=== PATIENT | male | born 1945 | race Caucasian/White ===

== ENCOUNTER → 2021-01-10 | Outpatient (CLI) | payer MEDICARE ==
[~2021-01-10] MED LIST: GADOTERATE 10 MMOL/20 ML VIAL ONE; GLUCAGON 1 MG ONE; MINO10TA PO
== END | disposition home or self-care (01) ==
LOC: CFH 07:45
PROVIDERS: ATTEND Physician Assistant
DX: N28.1 Cyst of kidney, acquired (principal); R18.8 Other ascites; M79.89 Other specified soft tissue disorders; R10.30 Lower abdominal pain, unspecified; R93.5 Abnormal findings on diagnostic imaging of other abdominal regions, including retroperitoneum; R63.4 Abnormal weight loss
CPT/HCPCS: 72197; 74183; A9575; J1610